=== PATIENT | male | born 1945 | race Caucasian/White ===

== ENCOUNTER 2022-01-10 08:47 | Inpatient (IN) | payer MEDICARE ==
[~2022-01-10] VITALS: Ht 177.8 cm; Wt 113.4 kg
[2022-01-10] MEDS ORDERED: NITROGLYCERIN 2% OINT 1 GM PKT TOP ONE (09:30)
[2022-01-10] MEDS ORDERED: FUROSEMIDE INJ 10 MG/ML 4 ML VIAL IV ONE (09:30)
[2022-01-10] MEDS ORDERED: ASPIRIN 81 MG CHEW TAB PO ONE (10:00)
[2022-01-10] MEDS ORDERED: FUROSEMIDE INJ 10 MG/ML 4 ML VIAL ONE (10:56)
[2022-01-10] MEDS ORDERED: FLOMAX0.4 MG PO (11:31)
[2022-01-10] MEDS ORDERED: ZESTRIL40 MG PO (11:31)
[2022-01-10] MEDS ORDERED: FUROSEMIDE40 MG PO (11:31)
[2022-01-10] MEDS ORDERED: GLIPIZIDE5 MG PO (11:31)
[2022-01-10] MEDS ORDERED: AVODART0.5 MG PO (11:31)
[2022-01-10] MEDS ORDERED: ULTRAM50 MG PO (11:31)
[2022-01-10] MEDS ORDERED: DIPHENHYDRAMINE25 MG PO (11:31)
[2022-01-10] MEDS ORDERED: COLCRYS0.6 MG PO (11:31)
[2022-01-10] MEDS ORDERED: ATENOLOL50 MG PO (11:31)
[2022-01-10] MEDS ORDERED: SYMBICORT 16010.2 GM INH (11:31)
[2022-01-10] MEDS ORDERED: CLOBETASOL PROP50 GM (11:31)
[2022-01-10] MEDS ORDERED: SIMVASTATIN20 MG PO (11:31)
[2022-01-10] MEDS ORDERED: PROVENTIL HFA6.7 GM INH (11:31)
[2022-01-10] MEDS ORDERED: ASPIRIN325 MG PO (11:31)
[2022-01-10] MEDS ORDERED: FISH OIL 1,2001 EACH (11:31)
[2022-01-10] MEDS ORDERED: FOLIC ACID0.8 M1 (11:31)
[2022-01-10 13:20] VITALS: BP 144/79
[2022-01-10 13:25] VITALS: BP 144/79
[2022-01-10] MEDS ORDERED: LEVEMIR FL100 UNIT/1 SC (15:08)
[2022-01-10] MEDS ORDERED: FOLIC ACID0.8 MG PO (15:08)
[2022-01-10 15:56] VITALS: BP 123/62
[2022-01-10] MEDS ORDERED: FUROSEMIDE INJ 10 MG/ML 4 ML VIAL IV SCH (17:00)
[2022-01-10] MEDS ORDERED: ONDANSETRON HCL INJ 2MG/ML 2ML 2 MG/ML VIAL IV PRN (18:00)
[2022-01-10] MEDS ORDERED: HYDRALAZINE HCL 20 MG/ML VIAL IV PRN (18:00)
[2022-01-10] MEDS ORDERED: ACETAMINOPHEN 325 MG TAB PO PRN (18:00)
[2022-01-10] MEDS ORDERED: TRAMADOL HCL 50 MG TAB PO PRN (18:00)
[2022-01-10 18:03] VITALS: BP 133/68
[2022-01-10] MEDS: BUDESONIDE/FORMOTEROL 160/4.5MCG INHALER INH SCH (19:00)
[2022-01-10 19:27] LABS: CREATINE KINASE MB 2.3 ng/mL (0-5.0)
[2022-01-10] MEDS: ENOXAPARIN SOD INJ 40 MG/0.4 ML SYR SC SCH (19:29)
[2022-01-10 19:50] VITALS: BP 133/68
[2022-01-10 20:00] VITALS: BP 145/56
[2022-01-10] MEDS: ALBUTEROL/IPRATROPIUM 3 ML NEB NEB PRN (23:00)
[2022-01-10] MEDS ORDERED: DEXTROSE 50% SYRINGE 50 ML IV PRN ×2 (23:00)
[2022-01-11] VITALS (7 sets, daily range): BP systolic 145–166; BP diastolic 58–74
[2022-01-11 06:20] LABS: BASOPHILS % 0.4 % (0.0-1.0); EOSINOPHILS # (AUTO) 0.1 (0.0-0.4); EOSINOPHILS % 1.8 % (0.0-6.0); HEMATOCRIT 44.1 % (38.2-49.6); HEMOGLOBIN 13.6 g/dL (14.0-18.0); LYMPHOCYTES # (AUTO) 1.1 (1.0-3.2); LYMPHOCYTES % 13.3 % (18.0-39.1); MEAN CORPUSCULAR HEMOGLOBIN 28.9 pg (28-32); MEAN CORPUSCULAR HGB CONC 30.8 g/dL (31-35); MEAN CORPUSCULAR VOLUME 93.6 fL (81-99); MONOCYTES # (AUTO) 1.7 (0.2-0.8); MONOCYTES % 20.8 % (4.4-11.3); NEUTROPHILS # (AUTO) 5.1 (2.1-6.9); NEUTROPHILS % 63.4 % (38.7-80.0); PLATELET COUNT 255 x10e3/uL (140-360); RED BLOOD COUNT 4.71 x10e6/uL (4.3-5.7); RED CELL DISTRIBUTION WIDTH 13.3 % (11.7-14.4)
[2022-01-11] MEDS: BENZONATATE 100 MG CAP PO PRN ×4 (06:23→22:27)
[2022-01-11] MEDS: ALBUTEROL/IPRATROPIUM 3 ML NEB NEB PRN (06:35)
[2022-01-11] MEDS: BUDESONIDE/FORMOTEROL 160/4.5MCG INHALER INH SCH ×2 (06:41→19:19)
[2022-01-11 07:28] LABS: THYROID STIMULATING HORMONE 0.916 uIU/mL (0.350-4.940)
[2022-01-11 08:04] LABS: ANION GAP 18.3 mmol/L (8-16); CALCIUM 8.7 mg/dL (8.4-10.2); CREATININE, SERUM 1.26 mg/dL (0.72-1.25); MAGNESIUM 2.1 MG/DL (1.3-2.1); POTASSIUM 4.3 mmol/L (3.5-5.1)
[2022-01-11 09:01] LABS: EOSINOPHILS % (MANUAL) 3 % (0-7); LYMPHOCYTES % (MANUAL) 19 % (19-48); MONOCYTES % (MANUAL) 15 % (3.4-9.0); NEUTROPHILS % (MANUAL) 63 % (40-74)
[2022-01-11 09:02] LABS: PLATELET ESTIMATE ADEQUATE; PLATELET MORPHOLOGY COMMENT NORMAL
[2022-01-11 09:03] LABS: RBC MORPHOLOGY COMMENT NORMAL
[2022-01-11] MEDS: GLIPIZIDE 5 MG TAB PO SCH (09:16)
[2022-01-11] MEDS: TAMSULOSIN HCL 0.4 MG CAP PO SCH (09:16)
[2022-01-11] MEDS: DUTASTERIDE 0.5 MG CAP PO SCH (09:16)
[2022-01-11] MEDS: INSULIN LISPRO 100 UNIT/1 ML 3ML VIAL SQ SCH ×4 (09:53→21:00)
[2022-01-11] MEDS: ATENOLOL 50 MG TAB PO SCH (16:11)
[2022-01-11] MEDS: ENOXAPARIN SOD INJ 40 MG/0.4 ML SYR SC SCH (16:11)
[2022-01-11] MEDS: DIPHENHYDRAMINE HCL 25 MG CAP PO PRN (18:29)
[2022-01-11] MEDS: INSULIN GLARGINE 100 UNITS/ML VIAL SQ SCH (21:00)
[2022-01-11] MEDS: ASPIRIN 325 MG TAB PO SCH (23:00)
[2022-01-12] VITALS (7 sets, daily range): BP systolic 158–167; BP diastolic 59–77
[2022-01-12] MEDS: INSULIN LISPRO 100 UNIT/1 ML 3ML VIAL SQ SCH ×4 (07:30→22:14)
[2022-01-12] MEDS: TAMSULOSIN HCL 0.4 MG CAP PO SCH (08:19)
[2022-01-12] MEDS: GLIPIZIDE 5 MG TAB PO SCH (08:19)
[2022-01-12] MEDS: DUTASTERIDE 0.5 MG CAP PO SCH (08:19)
[2022-01-12 08:28] LABS: ANION GAP 15.9 mmol/L (8-16); CALCIUM 9.8 mg/dL (8.4-10.2); CREATININE, SERUM 1.08 mg/dL (0.72-1.25); POTASSIUM 3.9 mmol/L (3.5-5.1)
[2022-01-12] MEDS: BUDESONIDE/FORMOTEROL 160/4.5MCG INHALER INH SCH ×2 (08:35→18:42)
[2022-01-12] MEDS: ALBUTEROL/IPRATROPIUM 3 ML NEB NEB PRN ×2 (08:35→18:26)
[2022-01-12] MEDS ORDERED: AZITHROMYCIN 250 MG TAB PO SCH (10:00)
[2022-01-12] MEDS: AZITHROMYCIN 250 MG TAB PO SCH (11:58)
[2022-01-12] MEDS ORDERED: SODIUM CHLORIDE 0.9% 250ML 250 ML ONE (12:04)
[2022-01-12] MEDS ORDERED: FLONASE ALLERG9.9 ML INH (15:51)
[2022-01-12] MEDS ORDERED: FLUTICASONE PROPIONATE NASAL SPRAY NS PRN (16:00)
[2022-01-12] MEDS: ATENOLOL 50 MG TAB PO SCH (16:46)
[2022-01-12] MEDS: ENOXAPARIN SOD INJ 40 MG/0.4 ML SYR SC SCH (16:48)
[2022-01-12] MEDS: ASPIRIN 325 MG TAB PO SCH (22:09)
[2022-01-12] MEDS: INSULIN GLARGINE 100 UNITS/ML VIAL SQ SCH (22:15)
[2022-01-13] VITALS (9 sets, daily range): BP systolic 140–158; BP diastolic 58–77
[2022-01-13] MEDS: INSULIN LISPRO 100 UNIT/1 ML 3ML VIAL SQ SCH ×4 (07:30→21:00)
[2022-01-13] MEDS: DUTASTERIDE 0.5 MG CAP PO SCH (08:45)
[2022-01-13] MEDS: TAMSULOSIN HCL 0.4 MG CAP PO SCH (08:45)
[2022-01-13] MEDS: AZITHROMYCIN 250 MG TAB PO SCH (08:45)
[2022-01-13] MEDS: GLIPIZIDE 5 MG TAB PO SCH (08:45)
[2022-01-13] MEDS: ALBUTEROL/IPRATROPIUM 3 ML NEB NEB PRN ×2 (09:03→20:00)
[2022-01-13] MEDS: BUDESONIDE/FORMOTEROL 160/4.5MCG INHALER INH SCH ×2 (09:03→19:00)
[2022-01-13] MEDS: BENZONATATE 100 MG CAP PO PRN ×2 (16:34→21:51)
[2022-01-13] MEDS: ATENOLOL 50 MG TAB PO SCH (16:35)
[2022-01-13] MEDS: ENOXAPARIN SOD INJ 40 MG/0.4 ML SYR SC SCH (16:36)
[2022-01-13] MEDS: INSULIN GLARGINE 100 UNITS/ML VIAL SQ SCH (21:00)
[2022-01-13] MEDS: DIPHENHYDRAMINE HCL 25 MG CAP PO PRN (21:51)
[2022-01-13] MEDS: ASPIRIN 325 MG TAB PO SCH (21:51)
[2022-01-14] VITALS: BP 158/82
[2022-01-14 04:00] VITALS: BP 173/70
[2022-01-14] MEDS: ALBUTEROL/IPRATROPIUM 3 ML NEB NEB PRN (05:45)
[2022-01-14] MEDS: BUDESONIDE/FORMOTEROL 160/4.5MCG INHALER INH SCH (05:59)
[2022-01-14 07:20] VITALS: BP 154/62
[2022-01-14] MEDS ORDERED: SODIUM CHLORIDE 0.9% 250ML 250 ML ONE (07:34)
[2022-01-14 08:06] VITALS: BP 154/62
[2022-01-14] MEDS: GLIPIZIDE 5 MG TAB PO SCH (08:21)
[2022-01-14] MEDS: DUTASTERIDE 0.5 MG CAP PO SCH (08:21)
[2022-01-14] MEDS: AZITHROMYCIN 250 MG TAB PO SCH (08:22)
[2022-01-14] MEDS: TAMSULOSIN HCL 0.4 MG CAP PO SCH (08:22)
[2022-01-14] MEDS: INSULIN LISPRO 100 UNIT/1 ML 3ML VIAL SQ SCH ×2 (08:31→12:20)
[2022-01-14 11:40] VITALS: BP 121/70
[2022-01-14] MEDS ORDERED: ONDANSETRON HCL 4 MG ORAL DISINTEGRATING TAB PO PRN (14:45)
[2022-01-14] MEDS ORDERED: AZITHROMYCIN500 MG PO (14:58)
[2022-01-14] MEDS ORDERED: azithromycin PO (15:31)
== END 2022-01-14 15:47 | disposition home or self-care (01) | DRG 194 ==
LOC: FSED 09:00 → ERHOLD 10:02 → INTOOBSV 10:02 → MED/SURG3 13:20 → INTOOBSV 01-12 09:56 → OBSVTOIN 01-12 09:56
PROVIDERS: ADMIT Internal Medicine; ATTEND Internal Medicine
DX: J18.9 Pneumonia, unspecified organism (principal); N17.9 Acute kidney failure, unspecified; N40.0 Benign prostatic hyperplasia without lower urinary tract symptoms; E11.22 Type 2 diabetes mellitus with diabetic chronic kidney disease; I12.9 Hypertensive chronic kidney disease with stage 1 through stage 4 chronic kidney disease, or unspecified chronic kidney disease; N18.30 Chronic kidney disease, stage 3 unspecified; Z79.899 Other long term (current) drug therapy; Z20.822 Contact with and (suspected) exposure to COVID-19; E78.5 Hyperlipidemia, unspecified; R00.1 Bradycardia, unspecified
CPT/HCPCS: 0223U; 36415; 71045; 71250; 80048; 80053; 80061; 82550; 82553; 82948; 83036; 83735; 83880; 84443; 84484; 85025; 85379; 93005; 93306; 93970; 94640; 94799; 96374; 99251; 99284; G0378; J0696; J1650; J1815; J1940; J7050